=== PATIENT | male | born 1965 | race African-American/Black ===

== ENCOUNTER 2016-10-07 14:39 | Emergency (ER) | payer OTHER ==
[2016-10-07 15:28] VITALS: BP 152/100; PULSE 105; RESP 16; TEMP 99.1
[2016-10-07] MEDS ORDERED: KETOROLAC 60 MG/2 ML VIAL IM STA (15:52)
--- NOTE | 2016-10-07 15:54 | ED ---
General Adult HPI - General Chief complaint: Back Pain/Injury Stated complaint: Back Pain Time Seen by Provider: 10/07/16 15:44 Source: patient, RN notes reviewed Mode of arrival: ambulatory Limitations: no limitations - History of Present Illness Initial comments: Patient is a 50-year-old male with significant past medical history for chronic back pain, who presents emergency room today with chief complaint of increased pain to the lower back over the last 2 days. He does admit that he began feeling some increased pain 2 days ago but states he slipped when he was in the tub causing increased pain. Does admit to previous surgery the lower back. States uses ibuprofen at home for the pain. Patient states recovering heroin addict and does not want any narcotics for the pain. He denies any saddle anesthesia. Denies any bowel or bladder incontinence retention. Does admit to pain that radiates down the back of both the right and left thigh. Patient denies any recent fever, chills, shortness of breath, chest pain, abdominal pain , nausea or vomiting, dysuria or hematuria, constipation or diarrhea, headaches or visual changes, or any other complaints. - Related Data Home Medications Medication Instructions Recorded Confirmed HYDROcodone/APAP 10-325MG [[place] 1 each PO Q6H PRN 01/22/14 01/22/14 10] Previous Rx's Medication Instructions Recorded Albuterol Sulfate [Ventolin HFA] 2 puff INHALATION Q4H PRN #1 01/22/14 inhaler Azithromycin [Zithromax Z-pack] 0 mg PO DIRECTED #6 tab 01/22/14 Cyclobenzaprine [Flexeril] 10 mg PO TID 7 Days 06/03/16 Cyclobenzaprine [Flexeril] 10 mg PO TID #20 tab 10/07/16 Dexamethasone 0.75 mg PO DIRECTED #12 tablet 10/07/16 Ibuprofen [Motrin] 800 mg PO Q6HR PRN #30 tab 10/07/16 Lidocaine 5% Patch [Lidoderm 5% 1 patch TOPICAL DAILY #5 patch 10/07/16 Patch] Allergies Allergy/AdvReac Type Severity Reaction Status Date / Time ibuprofen [From Motrin] AdvReac Nausea & Verified 01/22/14 22:01 Vomiting Review of Systems ROS Statement: Those systems with pertinent positive or pertinent negative responses have been documented in the HPI. ROS Other: All systems not noted in ROS Statement are negative. Past Medical History Past Medical History: Hypertension Additional Past Medical History / Comment(s): hypoglycemia chronic back pain History of Any Multi-Drug Resistant Organisms: None Reported Past Surgical History: Back Surgery Additional Past Surgical History / Comment(s): cervical fusion Past Psychological History: Depression Smoking Status: Current every day smoker Past Alcohol Use History: None Reported Past Drug Use History: Marijuana General Exam - General Exam Comments Initial Comments: General: The patient is awake and alert, in no distress, and does not appear acutely ill. Eye: Pupils are equal, round and reactive to light, extra-ocular movements are intact. No nystagmus. There is normal conjunctiva bilaterally. No signs of icterus. Ears, nose, mouth and throat: There are moist mucous membranes and no oral lesions. Neck: The neck is supple, there is no tenderness or JVD. Cardiovascular: There is a regular rate and rhythm. No murmur, rub or gallop is appreciated. Respiratory: Lungs are clear to auscultation, respirations are non-labored, breath sounds are equal. No wheezes, stridor, rales, or rhonchi. Gastrointestinal: Soft, non-distended, non-tender abdomen without masses or organomegaly noted. There is no rebound or guarding present. No CVA tenderness. Musculoskeletal: Normal appearance of the thoracic, lumbar spine. No step- offs forms appreciated. Mild tenderness lower lumbar at L4-L5 and S1. Mild decreased range of motion with flexion at the lower lumbar. Strength 5/5. Sensation intact. Pulses equal bilaterally 2+. Neurological: A&O x 3. CN II-XII intact, There are no obvious motor or sensory deficits. Coordination appears grossly intact. Speech is normal. Skin: Skin is warm and dry and no rashes or lesions are noted. Psychiatric: Cooperative, appropriate mood & affect, normal judgment. Limitations: no limitations Course Vital Signs 10/07/16 15:24 Temperature 99.1 F Pulse Rate 105 H Respiratory 16 Rate Blood Pressure 152/100 O2 Sat by Pulse 99 Oximetry Medical Decision Making - Medical Decision Making X-rays reviewed and are negative for any acute abnormalities. Hardware stable. Patient advised follow-up with his family doctor or back specialist for further evaluation. Will be continued on anti-inflammatories and muscle relaxant. Disposition Clinical Impression: Acute back pain Disposition: HOME SELF-CARE Condition: Good Instructions: Acute Low Back Pain (ED) Additional Instructions: Please use medication as discussed. Please follow-up with family doctor in the next 2 days of symptoms have not improved. Please return to emergency room if the symptoms increase or worsen or for any other concerns. Prescriptions: Cyclobenzaprine [Flexeril] 10 mg PO TID #20 tab Dexamethasone 0.75 mg PO DIRECTED #12 tablet Ibuprofen [Motrin] 800 mg PO Q6HR PRN #30 tab PRN Reason: Pain Lidocaine 5% Patch [Lidoderm 5% Patch] 1 patch TOPICAL DAILY #5 patch Time of Disposition: 16:12
--- NOTE | 2016-10-07 16:03 | XR ---
EXAMINATION TYPE: XR lumbar spine 2 or 3V DATE OF EXAM: 10/07/2016 3:58 PM CLINICAL HISTORY: pain TECHNIQUE: Three views of the lumbar spine are submitted. COMPARISON: None. FINDINGS: There are 5 lumbar type vertebral bodies identified. The lumbar spine shows satisfactory alignment w ithout evidence of acute fracture or dislocation. Vertebral body heights are within normal limits. Disc spaces are within normal limits. The overlying soft tissue appears unremarkable. IMPRESSION: No acute fracture or dislocation is seen in the lumbar spine. ICD 10 NO FRACTURE, INITIAL EVALUATION
== END 2016-10-07 16:26 | disposition home or self-care (01) ==
LOC: EC 14:39
DX: M54.5 Low back pain (principal); M79.651 Pain in right thigh; M79.652 Pain in left thigh; G89.29 Other chronic pain; F17.200 Nicotine dependence, unspecified, uncomplicated; Z88.6 Allergy status to analgesic agent; Z98.1 Arthrodesis status
CPT/HCPCS: 99283 ×2; 96372 ×2; 72100; J1885